=== PATIENT | male | born 1990 | race Two or more races ===

== ENCOUNTER 2018-08-26 14:43 | Emergency (ER) | payer MEDICAID, OTHER ==
[~2018-08-26] VITALS: Ht 180.3 cm; Wt 90.3 kg
[2018-08-26 15:02] VITALS: BP 144/83
== END 2018-08-26 15:26 | disposition home or self-care (01) ==
LOC: ER 14:46
DX: G43.909 Migraine, unspecified, not intractable, without status migrainosus (principal); R56.9 Unspecified convulsions; Z76.0 Encounter for issue of repeat prescription

== ENCOUNTER 2018-10-17 20:15 | Emergency (ER) | payer MEDICAID ==
[~2018-10-17] VITALS: Ht 180.3 cm; Wt 99.8 kg
[2018-10-17 20:48] LABS: Urine WBC None Seen /hpf (0 - 3)
[2018-10-17 21:13] LABS: Urine Bacteria NONE SEEN /hpf (None Seen); Urine Blood Negative /uL (Negative); Urine Specific Gravity 1.002 (1.001-1.035)
[2018-10-17 22:00] LABS: Basophils # (auto) 0.1 uL; Eosinophils # (auto) 0.1 uL; Eosinophils % (auto) 1.2 % (0.0-7.0); Hematocrit 43.3 % (41.0-53.0); Hemoglobin 14.7 g/dL (13.5-17.5); Lymphocytes # (auto) 0.4 uL; Lymphocytes % (auto) 5.9 % (10.0-50.0); Mean Corpuscular Hgb Conc. 33.9 g/dL (32.0-36.0); Mean Corpuscular Volume 91.4 fL (80.0-100.0); Monocytes # (auto) 0.3 uL; Monocytes % (auto) 3.4 % (0.0-12.0); Neutrophils # (auto) 6.7 uL; Neutrophils % (auto) 88.5 % (37.0-80.0); Nucleated Red Blood Cells % 0.1 %; Platelet Count (auto) 265 10^3/uL (140-450); Red Blood Cells 4.74 10^6/uL (4.5-5.90); Red Cell Distribution Width 12.9 % (11.8-14.3); White Blood Cell 7.6 10^3/uL (4.4-10.8)
[2018-10-17 22:21] LABS: Alcohol, Urine < 3.0 mg/dL (0-5); Amphetamine Screen, Urine NEGATIVE (NEGATIVE); Barbiturate Scree,Urine NEGATIVE (NEGATIVE); Benzodiazephine Screen, Urine NEGATIVE (NEGATIVE); Cannabinoid Screen, Urine POSITIVE (NEGATIVE); Cocaine Screen, Urine NEGATIVE (NEGATIVE); Opiate Scree,Urine NEGATIVE (NEGATIVE); Phencyclidine Screen, Urine NEGATIVE (NEGATIVE)
[2018-10-17 22:22] LABS: BUN/Creatinine Ratio 11.6; Calcium 8.4 mg/dL (8.5-10.1); Magnesium 2.1 mg/dL (1.6-2.6); Potassium 3.7 mmol/L (3.5-5.1)
[2018-10-17 22:24] LABS: Bilirubin, Total 0.3 mg/dL (0.2-1.0); Partial Thromboplastin Time 26.7 sec (23.78-33.04); Prothrombin Time 10.7 sec (9.27-12.13); Total Protein 7.6 g/dL (6.4-8.2)
[2018-10-17 22:29] VITALS: BP 119/65
[2018-10-17] MEDS ORDERED: LORazepam 0.5 MG TAB PO ONE (22:30)
== END 2018-10-17 22:57 | disposition home or self-care (01) ==
LOC: ER 20:16
DX: R56.9 Unspecified convulsions (principal); M54.9 Dorsalgia, unspecified
CPT/HCPCS: 36415; 70450; 80053; 80185; 80307; 81001; 83735; 85025; 85610; 85730

== ENCOUNTER 2023-02-10 02:12 | Emergency (ER) | payer MEDICAID, OTHER ==
[~2023-02-10] VITALS: Ht 180.3 cm; Wt 136.0 kg
[2023-02-10 03:12] LABS: Basophils # (auto) 0.1 10 ^3/uL (0-0.2); Basophils % (auto) 0.6 % (0.0-2.0); Eosinophils # (auto) 0 10 ^3/uL (0-0.8); Eosinophils % (auto) 0.1 % (0.0-7.0); Hematocrit 51.3 % (41.0-53.0); Hemoglobin 16.9 g/dL (13.5-17.5); Lymphocytes # (auto) 1.6 10 ^3/uL (0.4-5.4); Lymphocytes % (auto) 9.2 % (10.0-50.0); Mean Corpuscular Hemoglobin 29.6 pg (28.0-32.0); Mean Corpuscular Hgb Conc. 32.8 g/dL (32.0-36.0); Mean Corpuscular Volume 90.2 fL (80.0-100.0); Monocytes # (auto) 0.8 10 ^3/uL (0-1.3); Monocytes % (auto) 4.5 % (0.0-12.0); Neutrophils # (auto) 15.3 10 ^3/uL (1.6-8.6); Neutrophils % (auto) 85.6 % (37.0-80.0); Nucleated Red Blood Cells % 0.1 %; Red Blood Cells 5.69 10^6/uL (4.5-5.90); Red Cell Distribution Width 14.7 % (11.8-14.3); White Blood Cell 17.8 10^3/uL (4.4-10.8)
[2023-02-10 03:15] VITALS: PULSE 126; RESP 28; O2SAT 92
[2023-02-10 03:30] LABS: Albumin 4.5 g/dL (3.4-5.0); Calcium 9.6 mg/dL (8.5-10.1); Potassium 4.5 mmol/L (3.5-5.1)
[2023-02-10 03:35] LABS: BUN/Creatinine Ratio 10.5 (10.0-20.0); Bilirubin, Total 0.2 mg/dL (0.2-1.0); Total Protein 9.3 g/dL (6.4-8.2)
[2023-02-10] MEDS ORDERED: GABAPENTIN 300 MG CAP PO ONE (04:00)
[2023-02-10] MEDS ORDERED: LORazepam 2MG/ML-1ML VIAL IV ONE (04:00)
[2023-02-10] MEDS ORDERED: LACTATED RINGER'S 1,000 ML IV ONE (07:00)
[2023-02-10 07:58] VITALS: BP 132/88; TEMP 98.1
[2023-02-10 07:59] VITALS: PULSE 98; RESP 20; O2SAT 98
== END 2023-02-10 08:02 | disposition home or self-care (01) ==
LOC: EDBD 02:12 → ER 02:15
DX: G40.909 Epilepsy, unspecified, not intractable, without status epilepticus (principal); D72.829 Elevated white blood cell count, unspecified; Z98.890 Other specified postprocedural states
CPT/HCPCS: 36415; 70450; 80053; 85025; 93005; 96361; 96374; 99285; J2060; J7030